=== PATIENT | male | born 1985 | race African-American/Black ===

== ENCOUNTER 2017-01-23 19:31 | Emergency (ER) | payer OTHER | END 2017-01-23 21:00 | disposition home or self-care (01) | LOC: ER 19:31 | DX: S61.401A Unspecified open wound of right hand, initial encounter (principal); I10 Essential (primary) hypertension; G43.909 Migraine, unspecified, not intractable, without status migrainosus; F17.210 Nicotine dependence, cigarettes, uncomplicated; Y92.009 Unspecified place in unspecified non-institutional (private) residence as the place of occurrence of the external cause | CPT/HCPCS: 90471 ==